=== PATIENT | female | born 1995 | race Caucasian/White ===

== ENCOUNTER 2017-09-16 13:06 | Emergency (ER) | payer MEDICAID ==
[~2017-09-16] VITALS: Ht 175.3 cm; Wt 59.0 kg
[2017-09-16 13:30] VITALS: BP 91/60
== END 2017-09-16 16:17 | disposition left against medical advice (07) ==
LOC: ER 13:06
DX: M25.571 Pain in right ankle and joints of right foot (principal); Z53.21 Procedure and treatment not carried out due to patient leaving prior to being seen by health care provider